=== PATIENT | female | born 1995 | race Caucasian/White ===

== ENCOUNTER → 2016-08-08 | Outpatient (REF) | payer MEDICAID ==
[~2016-08-08] MED LIST: ACET500C PO; BUSP10TA PO; ERYT5OPO TOP; ERYTHROMYCIN TOP; PROZ40CA PO; RISP0.5T16 PO; TRAZ50TA4 PO; TRAZO50TA PO; TYLE325T5 PO; [UNRECOGNIZED DRUG - CODE] TOP
[2016-08-08 12:05] LABS: MEAN CORPUSCULAR HEMOGLOBIN 30.4 pg (27.0-33.0); MEAN CORPUSCULAR HGB CONC 33.5 g/dl (32.0-36.5); MEAN CORPUSCULAR VOLUME 90.8 fl (80.0-96.0); RED CELL DISTRIBUTION WIDTH 12.6 % (11.5-14.5); WHITE BLOOD COUNT 5.7 K/mm3 (4.0-10.0)
[2016-08-08 12:07] LABS: ALBUMIN 3.9 GM/DL (3.2-5.2); ALBUMIN/GLOBULIN RATIO 1.56 (1.00-1.93); ALKALINE PHOSPHATASE 70 U/L (45-117); ALT/SGPT 26 U/L (12-78); ANION GAP 9 MEQ/L (8-16); AST/SGOT 8 U/L (15-37); BILIRUBIN,TOTAL 0.6 MG/DL (0.2-1.0); BLOOD UREA NITROGEN 8 MG/DL (7-18); CALCIUM LEVEL 8.4 MG/DL (8.5-10.1); CARBON DIOXIDE LEVEL 25 MEQ/L (21-32); CHLORIDE LEVEL 109 MEQ/L (98-107); CHOLESTEROL LEVEL 144 MG/DL (<200); GLOMERULAR FILTRATION RATE > 60.0 (>60); GLUCOSE, FASTING 88 MG/DL (70-105); POTASSIUM SERUM 3.9 MEQ/L (3.5-5.1); SODIUM LEVEL 143 MEQ/L (136-145); TOTAL PROTEIN 6.4 GM/DL (6.4-8.2); TRIGLYCERIDES LEVEL 47 MG/DL (<150)
== END ==
LOC: M SFHCLERA 09:28
PROVIDERS: ATTEND Family Medicine
DX: Z00.00 Encounter for general adult medical examination without abnormal findings (principal)

== ENCOUNTER → 2016-11-20 | Outpatient (REF) | payer MEDICAID ==
[~2016-11-20] MED LIST changes: +ERYT2PAD2 TOP; -RISP0.5T16 PO; +RISP0.5T21 PO; +TRAZ50TA11 PO; -TRAZ50TA4 PO; -[UNRECOGNIZED DRUG - CODE] TOP
== END ==
LOC: M SFHCWAGY 10:53
PROVIDERS: ATTEND Family Medicine
DX: Z11.3 Encounter for screening for infections with a predominantly sexual mode of transmission (principal); Z12.4 Encounter for screening for malignant neoplasm of cervix

== ENCOUNTER → 2017-08-02 | Outpatient (REF) | payer MEDICAID ==
[2017-08-02 13:44] LABS: ESTIMATED AVERAGE GLUCOSE 97 MG/DL (60-110)
== END ==
LOC: M SFHCLERA 09:04
DX: E66.9 Obesity, unspecified (principal)

== ENCOUNTER → 2017-11-19 | Outpatient (REF) | payer MEDICAID | LOC: M SFHCWAGY 13:40 | DX: Z12.4 Encounter for screening for malignant neoplasm of cervix (principal) ==

== ENCOUNTER → 2018-01-27 | Outpatient (REF) | payer MEDICAID ==
[2018-01-27 11:33] LABS: BASO % 0.4 % (0.0-1.0); EOS # 0.1 10^3/uL (0.0-0.50); EOS % 1.1 % (0.0-3.0); HEMATOCRIT 42.5 % (36.0-47.0); HEMOGLOBIN 13.9 g/dl (12.0-15.5); IMMATURE GRANULOCYTE % 0.4 % (0-3.0); LYMPH # 1.6 10^3/uL (1.5-6.5); LYMPH % 28.9 % (24.0-44.0); MEAN CORPUSCULAR HGB CONC 32.7 g/dl (32.0-36.5); MEAN CORPUSCULAR VOLUME 91.6 fl (80.0-96.0); MONO # 0.5 10^3/uL (0.0-0.8); MONO % 9.4 % (0.0-5.0); NEUTROPHILS # 3.3 10^3/uL (1.8-7.7); NEUTROPHILS % 59.8 % (36.0-66.0); PLATELET COUNT, AUTOMATED 306 10^3/uL (150-450); RED BLOOD COUNT 4.64 10^6/uL (4.00-5.40); RED CELL DISTRIBUTION WIDTH 12.8 % (11.5-14.5); WHITE BLOOD COUNT 5.5 10^3/uL (4.0-10.0)
[2018-01-27 13:35] LABS: ALBUMIN 3.5 GM/DL (3.2-5.2); ALBUMIN/GLOBULIN RATIO 1.09 (1.00-1.93); ALKALINE PHOSPHATASE 66 U/L (45-117); ALT/SGPT 16 U/L (12-78); ANION GAP 8 MEQ/L (8-16); AST/SGOT 7 U/L (7-37); BILIRUBIN,TOTAL 0.2 MG/DL (0.2-1.0); BLOOD UREA NITROGEN 7 MG/DL (7-18); CARBON DIOXIDE LEVEL 23 MEQ/L (21-32); CHLORIDE LEVEL 113 MEQ/L (98-107); CREATININE FOR GFR 0.65 MG/DL (0.55-1.30); GLOMERULAR FILTRATION RATE > 60.0 (>60); GLUCOSE, FASTING 80 MG/DL (70-100); POTASSIUM SERUM 4.6 MEQ/L (3.5-5.1); SODIUM LEVEL 144 MEQ/L (136-145); TOTAL PROTEIN 6.7 GM/DL (6.4-8.2)
[2018-01-27 14:29] LABS: FREE T4 0.85 NG/DL (0.76-1.46)
== END ==
LOC: M SFHCLERA 08:53
DX: E66.09 Other obesity due to excess calories (principal)

== ENCOUNTER → 2018-04-24 | Outpatient (REF) | payer MEDICAID ==
[~2018-04-24] MED LIST changes: +TRAZ-160 PO; -TRAZ50TA11 PO
== END ==
LOC: M SFHCLERA 12:11
PROVIDERS: ATTEND Physician Assistant
DX: J02.9 Acute pharyngitis, unspecified (principal)

== ENCOUNTER 2018-09-07 14:49 | Emergency (ER) | payer MEDICAID ==
[~2018-09-07 14:49] MED LIST changes: +ERYT1OIN26 TOP; -ERYT5OPO TOP; +TRAZ1TAB6 PO; -TRAZO50TA PO
[2018-09-07] MEDS ORDERED: ACETAMINOPHEN 325 MG TAB PO ONE (15:15)
[2018-09-07] MEDS ORDERED: TOPA50TA8 PO (15:36)
[2018-09-07] MEDS ORDERED: CLAR10CA3 PO (15:36)
[2018-09-07] MEDS ORDERED: CETI10CA2 PO (15:36)
[2018-09-07] MEDS ORDERED: ALBU8.5H IH (15:36)
--- NOTE | 2018-09-07 15:53 | REP ---
LEFT KNEE, FIVE VIEWS: HISTORY: Pain. There is no acute fracture or dislocation. The joint spaces are normal in appearance. IMPRESSION: There is no acute fracture or dislocation. Electronically Signed by Americo Kline MD 09/07/2018 04:11 P
[2018-09-07 16:36] VITALS: BP 122/64
== END 2018-09-07 17:13 | disposition home or self-care (01) ==
LOC: EDBD 14:49 → M ED 14:49
DX: S89.92XA Unspecified injury of left lower leg, initial encounter (principal); W19.XXXA Unspecified fall, initial encounter; Y92.099 Unspecified place in other non-institutional residence as the place of occurrence of the external cause; Y93.9 Activity, unspecified; Y99.9 Unspecified external cause status; J30.2 Other seasonal allergic rhinitis; F41.9 Anxiety disorder, unspecified; F32.9 Major depressive disorder, single episode, unspecified; Z79.899 Other long term (current) drug therapy

== ENCOUNTER 2018-12-15 18:18 | Emergency (ER) | payer MEDICAID ==
[~2018-12-15] VITALS: Ht 154.9 cm; Wt 93.1 kg
[~2018-12-15 18:18] MED LIST changes: +ALBU8.5H IH; +CETI10CA2 PO; +CLAR10CA3 PO; +TOPA50TA8 PO; -TRAZ-160 PO; +TRAZ-252 PO
[2018-12-15 18:20] VITALS: BP 159/84
[2018-12-15] MEDS ORDERED: TOPA100T12 (18:28)
[2018-12-15] MEDS ORDERED: SING5CHW23 PO (18:28)
[2018-12-15] MEDS ORDERED: TRI-TAB11 (18:28)
[2018-12-15 20:24] LABS: HEMATOCRIT 42.1 % (36.0-47.0); MEAN CORPUSCULAR HEMOGLOBIN 30.2 pg (27.0-33.0); MEAN CORPUSCULAR HGB CONC 33.3 g/dl (32.0-36.5); MEAN CORPUSCULAR VOLUME 90.7 fl (80.0-96.0); PLATELET COUNT, AUTOMATED 327 10^3/uL (150-450); RED BLOOD COUNT 4.64 10^6/uL (4.00-5.40); WHITE BLOOD COUNT 8.8 10^3/uL (4.0-10.0)
[2018-12-15 20:47] LABS: AMPHETAMINES LEVEL URINE NEGATIVE (NEGATIVE); BARBITURATES URINE NEGATIVE (NEGATIVE); BENZODIAZEPINES URINE NEGATIVE (NEGATIVE); CANNABINOIDS URINE NEGATIVE (NEGATIVE); COCAINE METABOLITE URINE NEGATIVE (NEGATIVE); METHADONE URINE NEGATIVE (NEGATIVE); OPIATES URINE NEGATIVE (NEGATIVE); PHENCYCLIDINE URINE NEGATIVE (NEGATIVE)
[2018-12-15 20:53] LABS: HCG, SERUM QUALITATIVE NEGATIVE (NEGATIVE)
[2018-12-15 20:58] LABS: ACETAMINOPHEN LEVEL < 2.0 UG/ML (10.0-30.0); ALBUMIN 3.4 GM/DL (3.2-5.2); ALT/SGPT 14 U/L (12-78); BILIRUBIN,DIRECT < 0.1 MG/DL (0.0-0.2); BILIRUBIN,TOTAL 0.2 MG/DL (0.2-1.0); BLOOD UREA NITROGEN 8 MG/DL (7-18); CARBON DIOXIDE LEVEL 23 MEQ/L (21-32); CHLORIDE LEVEL 110 MEQ/L (98-107); CK-MB VALUE MASS < 1.0 NG/ML (<3.6); CPK CREATINE PHOSPHOKINASE 57 U/L (26-192); CREATININE FOR GFR 0.82 MG/DL (0.55-1.30); ETHYL ALCOHOL (ETHANOL) < 0.003 % (0.000-0.010); GLOMERULAR FILTRATION RATE > 60.0 (>60); GLUCOSE, FASTING 88 MG/DL (70-100); MB/CK RELATIVE INDEX 1.75 (< OR =4); POTASSIUM SERUM 3.5 MEQ/L (3.5-5.1); SALICYLATE LEVEL < 1.7 MG/DL (5.0-30.0); SODIUM LEVEL 141 MEQ/L (136-145); TOTAL PROTEIN 6.7 GM/DL (6.4-8.2); TROPONIN I < 0.02 NG/ML (< 0.10)
--- NOTE | 2018-12-15 21:12 | REP ---
CHEST, TWO VIEWS: There is no evidence of acute infiltrate. No pleural effusion is seen. The heart is normal in size. The mediastinal silhouette is unremarkable. The visualized osseous structures are intact. IMPRESSION: No acute pulmonary disease. Electronically Signed by Maurizio Dickson MD 12/16/2018 10:04 A
--- NOTE | 2018-12-17 07:56 | ECGEPIP ---
[facility] - ED Test Date: 2018-12-15 Pat Name: AKUA KELLER Department: Room: - Gender: Female Manager Apple: : 1995 Requested By: ED Thomas Order Number: [id number] Reading MD: Kandy Gonzalez Measurements Intervals [place] Rate: 65 P: 51 MO: 138 QRS: 28 QRSD: 125 T: 43 QT: 476 QTc: 498 Interpretive Statements SINUS RHYTHM WITH SINUS ARRHYTHMIA POSSIBLE RIGHT VENTRICULAR CONDUCTION DELAY ST DEVIATION AND MODERATE T-WAVE ABNORMALITY, CONSIDER ANTERIOR ISCHEMIA No prior Electronically Signed on 12-17-2018 7:56:35 EDT by Kandy Gonzalez
== END 2018-12-15 22:51 | disposition home or self-care (01) ==
LOC: M ED 18:18
DX: R07.9 Chest pain, unspecified (principal); F32.9 Major depressive disorder, single episode, unspecified; F41.9 Anxiety disorder, unspecified; L70.9 Acne, unspecified; E28.2 Polycystic ovarian syndrome; F70 Mild intellectual disabilities; J45.909 Unspecified asthma, uncomplicated; Z79.899 Other long term (current) drug therapy; Z79.3 Long term (current) use of hormonal contraceptives
CPT/HCPCS: 36415; 71046; 80048; 80076; 80307; 82550; 82553; 84443; 84703; 85027; 93005; 99284; G0480

== ENCOUNTER → 2018-12-30 | Outpatient (REF) | payer MEDICAID ==
[~2018-12-30] MED LIST changes: +SING5CHW23 PO; +TOPA100T12; +TRI-TAB11
[2018-12-30 21:39] LABS: CHLAMYDIA DNA AMPLIFICATION NEGATIVE (NEGATIVE); GC DNA AMPLIFICATION NEGATIVE (NEGATIVE)
== END ==
LOC: M SFHCLERA 17:25
PROVIDERS: ATTEND Nurse Practitioner Family
DX: R30.9 Painful micturition, unspecified (principal)

== ENCOUNTER → 2019-03-28 | Outpatient (REF) | payer MEDICAID | LOC: M SFHCLERA 11:28 | PROVIDERS: ATTEND Nurse Practitioner Family | DX: J02.9 Acute pharyngitis, unspecified (principal) ==

== ENCOUNTER → 2019-04-01 | Outpatient (CLI) | payer MEDICAID ==
--- NOTE | 2019-04-02 09:07 | REP ---
REASON: Pyrexia and cough. COMPARISON: 12/15/2018. FINDINGS: The superior mediastinal structures are midline. The cardiac silhouette is unremarkable in size, shape, and position. The diaphragmatic surfaces of the lungs are regular, and the costophrenic angles are clear. The pulmonary su are clear. The imaged osseous structures are intact. IMPRESSION: There is no acute cardiopulmonary disease. Electronically Signed by John Samuels DO 04/02/2019 09:25 A
== END ==
LOC: M LRY 17:07
PROVIDERS: ATTEND Physician Assistant
DX: R50.9 Fever, unspecified (principal)

== ENCOUNTER → 2019-05-12 | Outpatient (REF) | payer MEDICAID | LOC: M SFHCLERA 19:00 | PROVIDERS: ATTEND Physician Assistant | DX: R50.9 Fever, unspecified (principal) ==

== ENCOUNTER 2019-06-13 10:14 | Emergency (ER) | payer MEDICAID ==
[~2019-06-13] VITALS: Ht 149.9 cm; Wt 89.5 kg
[~2019-06-13 10:14] MED LIST changes: -ALBU8.5H IH; +ALBU8.5H INH; -TOPA100T12; +TOPA100T12 PO
[2019-06-13 13:30] LABS: HEMOGLOBIN 14.6 g/dl (12.0-15.5); MEAN CORPUSCULAR HGB CONC 31.7 g/dl (32.0-36.5); MEAN CORPUSCULAR VOLUME 91.5 fl (80.0-96.0); PLATELET COUNT, AUTOMATED 361 10^3/uL (150-450); RED BLOOD COUNT 5.03 10^6/uL (4.00-5.40); WHITE BLOOD COUNT 8.4 10^3/uL (4.0-10.0)
[2019-06-13 13:41] LABS: AMPHETAMINES LEVEL URINE NEGATIVE (NEGATIVE); BARBITURATES URINE NEGATIVE (NEGATIVE); BENZODIAZEPINES URINE NEGATIVE (NEGATIVE); CANNABINOIDS URINE NEGATIVE (NEGATIVE); COCAINE METABOLITE URINE NEGATIVE (NEGATIVE); METHADONE URINE NEGATIVE (NEGATIVE); OPIATES URINE NEGATIVE (NEGATIVE); PHENCYCLIDINE URINE NEGATIVE (NEGATIVE)
[2019-06-13 13:51] LABS: BLOOD UREA NITROGEN 7 MG/DL (7-18); CARBON DIOXIDE LEVEL 24 MEQ/L (21-32); CHLORIDE LEVEL 110 MEQ/L (98-107); CREATININE FOR GFR 0.81 MG/DL (0.55-1.30); GLOMERULAR FILTRATION RATE > 60.0 (>60); GLUCOSE, FASTING 82 MG/DL (70-100); POTASSIUM SERUM 3.6 MEQ/L (3.5-5.1); SODIUM LEVEL 141 MEQ/L (136-145)
[2019-06-13 13:52] LABS: ACETAMINOPHEN LEVEL < 2.0 UG/ML (10.0-30.0); ALBUMIN 3.8 GM/DL (3.2-5.2); ALT/SGPT 16 U/L (12-78); BILIRUBIN,DIRECT 0.1 MG/DL (0.0-0.2); BILIRUBIN,TOTAL 0.2 MG/DL (0.2-1.0); ETHYL ALCOHOL (ETHANOL) < 0.003 % (0.000-0.010); HCG, SERUM QUALITATIVE NEGATIVE (NEGATIVE); SALICYLATE LEVEL < 1.7 MG/DL (5.0-30.0)
[2019-06-13] MEDS ORDERED: FLON1SPR (14:39)
[2019-06-13] MEDS ORDERED: ERYTHROMYCIN TOP (14:39)
[2019-06-13] MEDS ORDERED: TRI-TAB PO (14:39)
[2019-06-13] MEDS ORDERED: MONT10TA2 PO (14:39)
[2019-06-13] MEDS ORDERED: VITA100054 PO (14:39)
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
[2019-06-13 16:14] VITALS: BP 140/91
== END 2019-06-13 16:16 | disposition home or self-care (01) ==
LOC: M ED 10:14
DX: F33.9 Major depressive disorder, recurrent, unspecified (principal); J45.909 Unspecified asthma, uncomplicated; E28.2 Polycystic ovarian syndrome; F41.9 Anxiety disorder, unspecified; F43.10 Post-traumatic stress disorder, unspecified; F60.3 Borderline personality disorder; F79 Unspecified intellectual disabilities; G40.A19 Absence epileptic syndrome, intractable, without status epilepticus; Z79.899 Other long term (current) drug therapy; Z79.3 Long term (current) use of hormonal contraceptives
CPT/HCPCS: 36415; 80048; 80076; 80307; 84443; 84703; 85027; 99284; G0480

== ENCOUNTER → 2020-09-10 | Outpatient (CLI) | payer MEDICAID ==
[~2020-09-10] MED LIST changes: -ERYT1OIN26 TOP; +ERYT5OIN25 TOP; +FLON1SPR; +MONT10TA10 PO; +TRI-TAB PO; +VITA100054 PO
== END ==
LOC: M WUC 10:48
PROVIDERS: ATTEND Physician Assistant Medical
DX: G43.909 Migraine, unspecified, not intractable, without status migrainosus (principal)

== ENCOUNTER → 2020-10-09 | Outpatient (CLI) | payer MEDICAID ==
[2020-10-14 16:22] LABS: TOPIRAMATE LEVEL 4.6 ug/mL (2.0-25.0)
== END ==
LOC: M WUC 13:56
PROVIDERS: ATTEND Physician Assistant Medical
DX: Z51.81 Encounter for therapeutic drug level monitoring (principal); G43.909 Migraine, unspecified, not intractable, without status migrainosus

== ENCOUNTER → 2020-10-21 | Outpatient (REF) | payer MEDICAID ==
[2020-10-21 20:42] LABS: AMORPHOUS SEDIMENT SMALL (NEGATIVE); APPEARANCE, URINE TURBID (CLEAR); BACTERIA, URINE AUTO NEGATIVE (NEGATIVE); BILIRUBIN, URINE AUTO NEGATIVE (NEGATIVE); BLOOD, URINE BLOOD NEGATIVE (NEGATIVE); CALCIUM OXALATE CRYSTALS SMALL; COLOR, URINE YELLOW (YELLOW); GLUCOSE, URINE (UA) AUTO NEGATIVE (NEGATIVE); KETONE, URINE AUTO NEGATIVE (NEGATIVE); LEUKOCYTE ESTERASE, URINE AUTO NEGATIVE (NEGATIVE); MUCUS, URINE SMALL (NEGATIVE); NITRITE, URINE AUTO NEGATIVE (NEGATIVE); PROTEIN, URINE AUTO NEGATIVE (NEGATIVE); RBC, URINE AUTO 1 /HPF (0-3); SPECIFIC GRAVITY URINE AUTO 1.011 (1.002-1.035); SQUAMOUS EPITHELIAL CELL UR AU 0 /HPF (0-6); UROBILINOGEN, URINE AUTO 0.2 mg/dL (0.0-2.0); WBC, URINE AUTO 0 /HPF (0-3)
== END ==
LOC: M LAB 19:55
PROVIDERS: ATTEND Family Medicine
DX: R30.0 Dysuria (principal)

== ENCOUNTER 2021-10-01 10:52 | Emergency (ER) | payer MEDICAID ==
[~2021-10-01] VITALS: Ht 124.5 cm; Wt 92.6 kg
[~2021-10-01 10:52] MED LIST changes: -MONT10TA10 PO; +MONT10TA97 PO
[2021-10-01 10:53] VITALS: BP 125/79
== END 2021-10-01 13:10 | disposition home or self-care (01) ==
LOC: M ED 10:52
DX: S63.601A Unspecified sprain of right thumb, initial encounter (principal); X50.9XXA Other and unspecified overexertion or strenuous movements or postures, initial encounter; Y92.018 Other place in single-family (private) house as the place of occurrence of the external cause; J45.909 Unspecified asthma, uncomplicated; F33.9 Major depressive disorder, recurrent, unspecified; R56.9 Unspecified convulsions; F71 Moderate intellectual disabilities; Z79.899 Other long term (current) drug therapy; Z79.3 Long term (current) use of hormonal contraceptives

== ENCOUNTER → 2021-10-14 | Outpatient (CLI) | payer MEDICAID | LOC: M RAD 11:58 | PROVIDERS: ATTEND Student in an Organized Health Care Education/Training Program | DX: S86.912A Strain of unspecified muscle(s) and tendon(s) at lower leg level, left leg, initial encounter (principal); X58.XXXA Exposure to other specified factors, initial encounter; Y92.9 Unspecified place or not applicable; Y99.9 Unspecified external cause status ==

== ENCOUNTER → 2021-12-26 | Outpatient (CLI) | payer MEDICAID | LOC: M SOG 08:02 | PROVIDERS: ATTEND Orthopaedic Surgery Adult Reconstructive Orthopaedic Surgery | DX: M25.562 Pain in left knee (principal) ==

== ENCOUNTER → 2022-02-03 | Outpatient (REF) | payer MEDICAID | LOC: M SFHCLERA 11:19 | PROVIDERS: ATTEND Family Medicine | DX: R39.15 Urgency of urination (principal); R35.0 Frequency of micturition ==

== ENCOUNTER → 2022-02-13 | Outpatient (REF) | payer MEDICAID | LOC: M SFHCPLAZ 16:56 | PROVIDERS: ATTEND Physician Assistant | DX: R30.0 Dysuria (principal) ==

== ENCOUNTER → 2022-04-29 | Outpatient (REF) | payer MEDICAID ==
[2022-04-29 19:20] LABS: APPEARANCE, URINE MANUAL CLEAR (CLEAR); BILIRUBIN, URINE MANUAL NEGATIVE (NEGATIVE); BLOOD URINE MANUAL NEGATIVE (NEGATIVE); COLOR, URINE MANUAL LT YELLOW (YELLOW); GLUCOSE, URINE (UA) MANUAL NEGATIVE (NEGATIVE); KETONE, URINE MANUAL NEGATIVE (NEGATIVE); NITRITE, URINE MANUAL NEGATIVE (NEGATIVE); PROTEIN, URINE MANUAL NEGATIVE (NEGATIVE); UROBILINOGEN, URINE MANUAL NORMAL (NORMAL)
[2022-04-29 19:22] LABS: LEUKOCYTE ESTERASE, URINE MAN TRACE (NEGATIVE)
[2022-04-29 22:05] LABS: BACTERIA, URINE MOD AMOUNT; SQUAMOUS EPITHELIAL CELL URINE SMALL AMOUNT /hpf (SMALL AMT)
[2022-04-29 22:06] LABS: HYALINE CAST, URINE NONE SEEN /lpf (0-1)
== END ==
LOC: M SFHCLERA 16:34
PROVIDERS: ATTEND Student in an Organized Health Care Education/Training Program
DX: R30.0 Dysuria (principal)

== ENCOUNTER → 2022-08-26 | Outpatient (REF) | payer MEDICAID | LOC: M PLALAB 15:13 | PROVIDERS: ATTEND Advanced Practice Midwife | DX: Z12.4 Encounter for screening for malignant neoplasm of cervix (principal) ==

== ENCOUNTER → 2022-09-25 | Outpatient (CLI) | payer MEDICAID ==
[2022-09-25 17:10] LABS: BASO % 0.3 % (0.0-1.0); EOS # 0.1 10^3/uL (0.0-0.5); EOS % 1.4 % (0.0-3.0); HEMATOCRIT 41.5 % (36.0-47.0); HEMOGLOBIN 13.4 g/dl (12.0-15.5); LYMPH # 2.8 10^3/uL (1.5-5.0); LYMPH % 38.4 % (24.0-44.0); MEAN CORPUSCULAR HEMOGLOBIN 29.5 pg (27.0-33.0); MEAN CORPUSCULAR HGB CONC 32.3 g/dl (32.0-36.5); MEAN CORPUSCULAR VOLUME 91.2 fl (80.0-96.0); MONO # 0.5 10^3/uL (0.0-0.8); MONO % 7.2 % (2.0-8.0); NEUTROPHILS # 3.8 10^3/uL (1.5-8.5); NEUTROPHILS % 52.3 % (36.0-66.0); PLATELET COUNT, AUTOMATED 338 10^3/uL (150-450); RED BLOOD COUNT 4.55 10^6/uL (4.00-5.40); WHITE BLOOD COUNT 7.2 10^3/uL (4.0-10.0)
[2022-09-25 17:13] LABS: ALBUMIN 3.1 G/DL (3.2-5.2); ALKALINE PHOSPHATASE 62 U/L (46-116); ALT/SGPT 15 U/L (7.0-40); AST/SGOT 9 U/L (<34); BILIRUBIN,TOTAL < 0.2 MG/DL (0.3-1.2); BLOOD UREA NITROGEN 7 MG/DL (9-23); CALCIUM LEVEL 8.6 MG/DL (8.5-10.1); CARBON DIOXIDE LEVEL 26 MMOL/L (20-31); CHLORIDE LEVEL 109 MMOL/L (98-107); CHOLESTEROL LEVEL 159 MG/DL (<200); CHOLESTEROL RISK RATIO 2.47 (<5); CREATININE FOR GFR 0.74 MG/DL (0.55-1.30); GLOMERULAR FILTRATION RATE > 60.0 (>60); GLUCOSE, FASTING 106 MG/DL (60-100); HDL CHOLESTEROL 64.2 MG/DL (>40); LDL CHOLESTEROL 71.6 MG/DL (<100); NON-HDL-C 94.8 MG/DL; POTASSIUM SERUM 4.2 MMOL/L (3.5-5.1); SODIUM LEVEL 140 MMOL/L (136-145); TRIGLYCERIDES LEVEL 116 MG/DL (<150)
[2022-09-25 17:15] LABS: FREE T4 1.02 NG/DL (0.89-1.76); THYROID STIMULATING HORMONE 2.117 uIU/ML (0.55-4.78)
== END ==
LOC: M WUC 12:50
PROVIDERS: ATTEND Student in an Organized Health Care Education/Training Program
DX: E66.01 Morbid (severe) obesity due to excess calories (principal); M25.762 Osteophyte, left knee

== ENCOUNTER → 2023-01-20 | Outpatient (REF) | payer MEDICAID | LOC: M SFHCWAGY 12:49 | PROVIDERS: ATTEND Nurse Practitioner Family | DX: N73.9 Female pelvic inflammatory disease, unspecified (principal) ==

== ENCOUNTER 2023-03-03 09:27 | Outpatient (RCR) | payer MEDICAID | END 2023-03-09 | LOC: M PT 09:27 | PROVIDERS: ATTEND Orthopaedic Surgery | DX: M25.562 Pain in left knee (principal) ==

== ENCOUNTER → 2023-03-09 | Outpatient (REF) | payer MEDICAID | LOC: M SFHCDERM 08:27 | PROVIDERS: ATTEND Physician Assistant | DX: D23.72 Other benign neoplasm of skin of left lower limb, including hip (principal) ==

== ENCOUNTER → 2023-06-30 | Outpatient (CLI) | payer MEDICAID ==
[~2023-06-30] MED LIST changes: +SYST0.4D2 OP
[2023-06-30 10:15] VITALS: TEMP 97.5
[2023-06-30 10:36] LABS: HEMOGLOBIN 14.1 g/dl (12.0-15.5); MEAN CORPUSCULAR VOLUME 90.5 fl (80.0-96.0); PLATELET COUNT, AUTOMATED 341 10^3/uL (150-450); RED BLOOD COUNT 4.86 10^6/uL (4.00-5.40); WHITE BLOOD COUNT 8.9 10^3/uL (4.0-10.0)
[2023-06-30 10:53] LABS: INR 1.03; PROTHROMBIN TIME 13.2 SECONDS (12.5-14.5)
[2023-06-30 12:36] LABS: APPEARANCE, CSF CLEAR (CLEAR); COLOR, CSF COLORLESS (COLORLESS); CSF TUBE# CELL CNT TUBE 1
[2023-06-30 13:14] LABS: CSF TUBE# TP TUBE 1; TOTAL PROTEIN,CSF 31.9 MG/DL (15-45)
[2023-06-30 13:15] VITALS: BP 149/74; O2SAT 99
[2023-06-30 13:17] LABS: CSF TUBE# GLU TUBE 1
== END ==
LOC: M IRPRO 09:54
PROVIDERS: ATTEND Psychiatry & Neurology Neurology
DX: G93.2 Benign intracranial hypertension (principal)

== ENCOUNTER → 2023-07-13 | Outpatient (REF) | payer MEDICAID ==
[~2023-07-13] MED LIST changes: +MONT5TAB7 PO; -SING5CHW23 PO
== END ==
LOC: M SFHCWAGY 13:45
PROVIDERS: ATTEND Nurse Practitioner Family
DX: R30.0 Dysuria (principal)

== ENCOUNTER → 2023-07-21 | Outpatient (CLI) | payer MEDICAID | LOC: M PLAIMG 08:10 | PROVIDERS: ATTEND Physician Assistant | DX: M71.22 Synovial cyst of popliteal space [Baker], left knee (principal) ==

== ENCOUNTER → 2023-08-04 | Outpatient (REF) | payer MEDICAID ==
[2023-08-04 11:25] LABS: BASO % 0.5 % (0.0-1.0); EOS # 0.2 10^3/uL (0.0-0.5); EOS % 2.5 % (0.0-3.0); HEMATOCRIT 43.1 % (36.0-47.0); LYMPH # 1.9 10^3/uL (1.5-5.0); MEAN CORPUSCULAR HEMOGLOBIN 28.6 pg (27.0-33.0); MEAN CORPUSCULAR HGB CONC 32.5 g/dl (32.0-36.5); MEAN CORPUSCULAR VOLUME 88.1 fl (80.0-96.0); MONO # 0.5 10^3/uL (0.0-0.8); MONO % 8.2 % (2.0-8.0); NEUTROPHILS # 3.7 10^3/uL (1.5-8.5); NEUTROPHILS % 58.3 % (36.0-66.0); PLATELET COUNT, AUTOMATED 351 10^3/uL (150-450); RED BLOOD COUNT 4.89 10^6/uL (4.00-5.40); WHITE BLOOD COUNT 6.4 10^3/uL (4.0-10.0)
[2023-08-04 11:52] LABS: ALBUMIN 3.7 G/DL (3.2-5.2); ALKALINE PHOSPHATASE 90 U/L (46-116); ALT/SGPT 20 U/L (7.0-40); AST/SGOT 10 U/L (<34); BILIRUBIN,TOTAL 0.4 MG/DL (0.3-1.2); BLOOD UREA NITROGEN 9 MG/DL (9-23); CALCIUM LEVEL 8.6 MG/DL (8.5-10.1); CARBON DIOXIDE LEVEL 19 MMOL/L (20-31); CHLORIDE LEVEL 114 MMOL/L (98-107); CREATININE FOR GFR 0.73 MG/DL (0.55-1.30); GLOMERULAR FILTRATION RATE > 60.0 (>60); GLUCOSE, FASTING 80 MG/DL (60-100); POTASSIUM SERUM 4.1 MMOL/L (3.5-5.1); SODIUM LEVEL 143 MMOL/L (136-145); TOTAL PROTEIN 6.3 G/DL (5.7-8.2)
== END ==
LOC: M LABWUC 10:20
PROVIDERS: ATTEND Psychiatry & Neurology Neurology
DX: G43.909 Migraine, unspecified, not intractable, without status migrainosus (principal)

== ENCOUNTER → 2023-10-06 | Outpatient (REF) | payer MEDICAID ==
[2023-10-06 12:54] LABS: BASO % 0.4 % (0.0-1.0); EOS # 0.1 10^3/uL (0.0-0.5); EOS % 0.9 % (0.0-3.0); HEMATOCRIT 43.7 % (36.0-47.0); HEMOGLOBIN 14.2 g/dl (12.0-15.5); LYMPH # 1.7 10^3/uL (1.5-5.0); LYMPH % 21.7 % (24.0-44.0); MEAN CORPUSCULAR HEMOGLOBIN 29.3 pg (27.0-33.0); MEAN CORPUSCULAR HGB CONC 32.5 g/dl (32.0-36.5); MEAN CORPUSCULAR VOLUME 90.3 fl (80.0-96.0); MONO # 0.6 10^3/uL (0.0-0.8); MONO % 8.1 % (2.0-8.0); NEUTROPHILS # 5.3 10^3/uL (1.5-8.5); NEUTROPHILS % 68.4 % (36.0-66.0); PLATELET COUNT, AUTOMATED 327 10^3/uL (150-450); RED BLOOD COUNT 4.84 10^6/uL (4.00-5.40); WHITE BLOOD COUNT 7.8 10^3/uL (4.0-10.0)
[2023-10-06 13:23] LABS: ALBUMIN 3.7 G/DL (3.2-5.2); ALKALINE PHOSPHATASE 107 U/L (46-116); ALT/SGPT 24 U/L (7.0-40); AST/SGOT < 8 U/L (<34); BILIRUBIN,TOTAL 0.5 MG/DL (0.3-1.2); BLOOD UREA NITROGEN 8 MG/DL (9-23); CALCIUM LEVEL 8.9 MG/DL (8.5-10.1); CARBON DIOXIDE LEVEL 22 MMOL/L (20-31); CHLORIDE LEVEL 112 MMOL/L (98-107); CHOLESTEROL LEVEL 173 MG/DL (<200); CHOLESTEROL RISK RATIO 3.73 (<5); CREATININE FOR GFR 0.81 MG/DL (0.55-1.30); GLOMERULAR FILTRATION RATE > 60.0 (>60); GLUCOSE, FASTING 73 MG/DL (60-100); HDL CHOLESTEROL 46.3 MG/DL (>40); LDL CHOLESTEROL 110.7 MG/DL (<100); NON-HDL-C 126.7 MG/DL; POTASSIUM SERUM 3.7 MMOL/L (3.5-5.1); SODIUM LEVEL 140 MMOL/L (136-145); TOTAL PROTEIN 6.5 G/DL (5.7-8.2); TRIGLYCERIDES LEVEL 80 MG/DL (<150)
[2023-10-06 13:25] LABS: THYROID STIMULATING HORMONE 1.896 uIU/ML (0.55-4.78); TOTAL 25(OH) VITAMIN D 35.6 NG/ML (20.0-100.0)
== END ==
LOC: M LABWUC 10:31
PROVIDERS: ATTEND Physician Assistant
DX: Z00.00 Encounter for general adult medical examination without abnormal findings (principal)

== ENCOUNTER → 2024-01-25 | Outpatient (REF) | payer MEDICAID | LOC: M SFHCWAGY 12:30 | PROVIDERS: ATTEND Nurse Practitioner Family | DX: N73.9 Female pelvic inflammatory disease, unspecified (principal) ==

== ENCOUNTER → 2024-01-31 | Outpatient (CLI) | payer MEDICAID | LOC: M SOG 07:23 | PROVIDERS: ATTEND Orthopaedic Surgery | DX: M25.562 Pain in left knee (principal) ==

== ENCOUNTER 2024-04-18 15:42 | Emergency (ER) | payer MEDICAID ==
[~2024-04-18] VITALS: Ht 154.9 cm; Wt 104.1 kg
[2024-04-18 15:50] VITALS: TEMP 98.7
[2024-04-18] MEDS ORDERED: EPIP0.15 IJ (15:53)
[2024-04-18] MEDS: diphenhydrAMINE 50MG CAP PO ONE (17:29)
[2024-04-18] MEDS: predniSONE 20 MG TAB PO ONE (17:30)
[2024-04-18] MEDS: FAMOTIDINE 20 MG TAB PO ONE (17:30)
[2024-04-18 18:30] VITALS: BP 141/72; O2SAT 98
== END 2024-04-18 18:45 | disposition home or self-care (01) ==
LOC: EDBD 15:42 → M ED 15:42
DX: T78.40XA Allergy, unspecified, initial encounter (principal); E28.2 Polycystic ovarian syndrome; J45.909 Unspecified asthma, uncomplicated; F31.9 Bipolar disorder, unspecified; F32.A Depression, unspecified; Z91.010 Allergy to peanuts; Z91.09 Other allergy status, other than to drugs and biological substances; Z79.51 Long term (current) use of inhaled steroids; Z79.899 Other long term (current) drug therapy
CPT/HCPCS: 99284; J7512

== ENCOUNTER 2024-04-21 07:27 | Emergency (ER) | payer MEDICAID ==
[~2024-04-21 07:27] MED LIST changes: +EPIP0.15 IJ
[2024-04-21 07:45] VITALS: BP 126/78; TEMP 96.9; O2SAT 97
[2024-04-21] MEDS: ONDANSETRON 4MG ORAL DISINTEGRATING TAB PO ONE (07:58)
[2024-04-21] MEDS: IBUPROFEN 600MG TAB PO ONE (07:59)
== END 2024-04-21 10:10 | disposition home or self-care (01) ==
LOC: EDBD 07:27 → M ED 07:27
DX: S00.83XA Contusion of other part of head, initial encounter (principal); Y92.9 Unspecified place or not applicable; Y93.9 Activity, unspecified; Y99.0 Civilian activity done for income or pay; W50.0XXA Accidental hit or strike by another person, initial encounter; Z91.010 Allergy to peanuts; Z91.09 Other allergy status, other than to drugs and biological substances; Z79.51 Long term (current) use of inhaled steroids; Z79.899 Other long term (current) drug therapy

== ENCOUNTER → 2024-09-27 | Outpatient (REF) | payer MEDICAID ==
[2024-09-29 14:22] LABS: HPV APTIMA Not Detected (Not Detected)
== END ==
LOC: M SFHCWAGY 12:47
PROVIDERS: ATTEND Nurse Practitioner Family
DX: Z12.4 Encounter for screening for malignant neoplasm of cervix (principal)

== ENCOUNTER 2025-01-11 19:13 | Inpatient (IN) | payer MEDICAID ==
[~2025-01-11] VITALS: Ht 160 cm; Wt 102.0 kg
[~2025-01-11 19:13] MED LIST changes: +EPIP0.3I2 IM
[2025-01-11 20:03] LABS: PLATELET COUNT, AUTOMATED 382 10^3/uL (150-450)
[2025-01-11 20:21] LABS: AMPHETAMINES LEVEL URINE NEGATIVE (NEGATIVE); BARBITURATES URINE NEGATIVE (NEGATIVE); BENZODIAZEPINES URINE NEGATIVE (NEGATIVE); COCAINE METABOLITE URINE NEGATIVE (NEGATIVE)
[2025-01-11 20:22] LABS: CANNABINOIDS URINE NEGATIVE (NEGATIVE); METHADONE URINE NEGATIVE (NEGATIVE); OPIATES URINE NEGATIVE (NEGATIVE); PHENCYCLIDINE URINE NEGATIVE (NEGATIVE)
[2025-01-11 20:24] LABS: ETHYL ALCOHOL (ETHANOL) 0.004 % (0.000-0.010)
[2025-01-11 20:25] LABS: SALICYLATE LEVEL < 3.0 MG/DL (<30)
[2025-01-11 20:26] LABS: ALT/SGPT 28 U/L (7.0-40); AST/SGOT 17 U/L (<34); CALCIUM LEVEL 8.6 MG/DL (8.5-10.1); CARBON DIOXIDE LEVEL 21 MMOL/L (20-31); CHLORIDE LEVEL 107 MMOL/L (98-107); CREATININE FOR GFR 0.79 MG/DL (0.55-1.30); GLOMERULAR FILTRATION RATE > 90.0 (>60); POTASSIUM SERUM 3.8 MMOL/L (3.5-5.1); SODIUM LEVEL 142 MMOL/L (136-145)
[2025-01-11 21:25] LABS: HCG, SERUM QUALITATIVE NEGATIVE (NEGATIVE)
[2025-01-11] MEDS: LORazepam 0.5 MG TAB PO ONE (22:09)
[2025-01-11] MEDS ORDERED: ACETAMINOPHEN 325 MG TAB PO PRN (22:20)
[2025-01-11] MEDS ORDERED: MAALOX 30 ML SUSP *UDC PO PRN (22:20)
[2025-01-11] MEDS ORDERED: MOM 30 ML SUSPENSION UDC PO PRN (22:20)
[2025-01-12 06:29] VITALS: BP 138/85; TEMP 98.2; O2SAT 100
[2025-01-12] MEDS ORDERED: ALBUTEROL 90 MCG/ACT 8 GM HFA INHALER INH PRN (11:50)
[2025-01-12] MEDS: MUPIROCIN 2% OINT 22 GM TUBE TOP SCH (12:18)
[2025-01-12] MEDS: MONTELUKAST 10 MG TAB PO ONE (12:18)
[2025-01-12] MEDS: ALBUTEROL 90 MCG/ACT 8 GM HFA INHALER INH ONE (12:18)
[2025-01-12] MEDS: MUPIROCIN 2% OINT 22 GM TUBE TOP ONE (12:23)
[2025-01-12] MEDS: ACETAMINOPHEN 500 MG TAB PO ONE (12:31)
[2025-01-12] MEDS: IBUPROFEN 400 MG TAB PO ONE (12:31)
[2025-01-12] MEDS ORDERED: ACET250T18 PO (15:14)
[2025-01-12] MEDS ORDERED: METF-838 PO (15:17)
[2025-01-12] MEDS ORDERED: NORA0.35 PO (15:18)
[2025-01-12] MEDS ORDERED: ERYT2GEL TOP (15:24)
[2025-01-12] MEDS ORDERED: ACET1TAB55 PO (15:27)
[2025-01-12] MEDS ORDERED: RELP20TA PO (15:29)
[2025-01-12] MEDS ORDERED: EPIPENSY SC (15:31)
[2025-01-12] MEDS ORDERED: IBUP-1720 PO (15:33)
[2025-01-12] MEDS ORDERED: SFHIBU600 PO (15:34)
[2025-01-12] MEDS ORDERED: D31000CA4 PO (15:37)
[2025-01-12] MEDS ORDERED: FLUO40CA PO (15:38)
[2025-01-12] MEDS ORDERED: NEOM14OI TOP (15:40)
[2025-01-12] MEDS ORDERED: DESI13CR2 TOP (15:40)
[2025-01-12] MEDS ORDERED: HOME MED LIST COMPLETE! XX SCH (15:45)
[2025-01-12 16:28] VITALS: BP 136/83; TEMP 98.4; O2SAT 100
[2025-01-12] MEDS: PROPRANOLOL 10 MG TAB PO SCH (16:44)
[2025-01-12] MEDS: traZODone 50 MG TAB PO PRN (20:19)
[2025-01-12] MEDS ORDERED: TOPIRAMATE 100 MG TAB PO SCH (21:00)
[2025-01-13 06:38] VITALS: BP 106/56; TEMP 97.3; O2SAT 98
[2025-01-13] MEDS: FLUoxetine 20 MG CAP PO SCH (08:06)
[2025-01-13] MEDS: MONTELUKAST 10 MG TAB PO SCH (08:06)
[2025-01-13 14:54] VITALS: BP 130/76; TEMP 97.1; O2SAT 100
[2025-01-13] MEDS: acetaZOLAMIDE 250 MG TAB PO SCH (21:00)
[2025-01-14 06:31] VITALS: BP 101/54; TEMP 96.8; O2SAT 99
[2025-01-14 10:35] LABS: KETONE, URINE AUTO RFX NEGATIVE (NEGATIVE); MUCUS, URINE RFX SMALL (NEGATIVE); NITRITE, URINE AUTO RFX NEGATIVE (NEGATIVE); RBC, URINE AUTO RFX 2 /HPF (0-3); SQUAM EPITHELIAL CELL UR AURFX 7 /HPF (0-6); WBC, URINE AUTO RFX 8 /HPF (0-3)
[2025-01-14 10:36] LABS: LEUKOCYTE ESTERASE UR AUTO RFX 3+ (NEGATIVE)
[2025-01-14] MEDS: NITROFURANTOIN 100 MG CAP PO SCH (13:10)
[2025-01-14 14:58] VITALS: BP 119/65; TEMP 97.2; O2SAT 97
[2025-01-15 06:24] VITALS: BP 111/58; TEMP 96.5; O2SAT 99
[2025-01-15 08:20] VITALS: BP 117/77
[2025-01-15 15:13] VITALS: BP 130/82; TEMP 97.2; O2SAT 99
[2025-01-16 06:16] VITALS: BP 113/59; TEMP 96.8; O2SAT 99
[2025-01-16 08:12] VITALS: BP 117/77
[2025-01-16 08:14] VITALS: BP 117/77
[2025-01-16] MEDS: IBUPROFEN 400 MG TAB PO PRN (08:49)
[2025-01-16] MEDS ORDERED: TRAZ-252 PO (08:59)
[2025-01-16] MEDS ORDERED: PROP10TA56 PO (08:59)
[2025-01-16] MEDS ORDERED: ABIL10TA9 PO (08:59)
[2025-01-16] MEDS ORDERED: FLUO-365 PO (08:59)
== END 2025-01-16 12:03 | disposition home or self-care (01) | DRG 751 ==
LOC: M ED 19:13 → M ED INP 22:19 → M PSY 23:05
PROVIDERS: ADMIT Psychiatry & Neurology Neurology; ATTEND General Practice
DX: F33.3 Major depressive disorder, recurrent, severe with psychotic symptoms (principal); F79 Unspecified intellectual disabilities; R45.851 Suicidal ideations; F41.9 Anxiety disorder, unspecified; F60.3 Borderline personality disorder; F43.10 Post-traumatic stress disorder, unspecified; Z79.84 Long term (current) use of oral hypoglycemic drugs; Z79.899 Other long term (current) drug therapy; Z91.010 Allergy to peanuts; Z91.048 Other nonmedicinal substance allergy status; E28.2 Polycystic ovarian syndrome; J45.20 Mild intermittent asthma, uncomplicated; L70.0 Acne vulgaris; E66.9 Obesity, unspecified; Z68.39 Body mass index [BMI] 39.0-39.9, adult; Z81.1 Family history of alcohol abuse and dependence; Z81.3 Family history of other psychoactive substance abuse and dependence

== ENCOUNTER → 2025-01-30 | Outpatient (REF) | payer MEDICAID ==
[~2025-01-30] MED LIST changes: +ABIL10TA9 PO; +ACET1TAB55 PO; +ACET250T18 PO; +D31000CA4 PO; +DESI13CR2 TOP; +EPIPENSY SC; +ERYT2GEL TOP; +FLUO-365 PO; +FLUO40CA PO; +IBUP-1720 PO; +METF-838 PO; +NEOM14OI TOP; +NORA0.35 PO; +PROP10TA56 PO; +RELP20TA PO; +SFHIBU600 PO
[2025-01-30 21:39] LABS: APPEARANCE, URINE CLEAR (CLEAR); BACTERIA, URINE AUTO NEGATIVE (NEGATIVE); BILIRUBIN, URINE AUTO NEGATIVE (NEGATIVE); BLOOD, URINE BLOOD NEGATIVE (NEGATIVE); GLUCOSE, URINE (UA) AUTO NEGATIVE (NEGATIVE); KETONE, URINE AUTO NEGATIVE (NEGATIVE); LEUKOCYTE ESTERASE, URINE AUTO 2+ (NEGATIVE); NITRITE, URINE AUTO NEGATIVE (NEGATIVE); PROTEIN, URINE AUTO NEGATIVE (NEGATIVE); RBC, URINE AUTO 1 /HPF (0-3); SPECIFIC GRAVITY URINE AUTO 1.005 (1.002-1.035); SQUAMOUS EPITHELIAL CELL UR AU 0 /HPF (0-6); UROBILINOGEN, URINE AUTO 0.2 mg/dL (0.0-2.0); WBC, URINE AUTO 1 /HPF (0-3)
== END ==
LOC: M LAB REF 21:28
PROVIDERS: ATTEND Physician Assistant Medical
DX: N39.0 Urinary tract infection, site not specified (principal)

== ENCOUNTER 2025-02-28 16:12 | Inpatient (IN) | payer MEDICAID ==
[~2025-02-28] VITALS: Ht 154.9 cm; Wt 111.4 kg
[2025-02-28 16:48] LABS: PLATELET COUNT, AUTOMATED 367 10^3/uL (150-450)
[2025-02-28 17:11] LABS: AMPHETAMINES LEVEL URINE NEGATIVE (NEGATIVE); BARBITURATES URINE NEGATIVE (NEGATIVE); BENZODIAZEPINES URINE NEGATIVE (NEGATIVE); CANNABINOIDS URINE NEGATIVE (NEGATIVE); COCAINE METABOLITE URINE NEGATIVE (NEGATIVE); METHADONE URINE NEGATIVE (NEGATIVE); OPIATES URINE NEGATIVE (NEGATIVE); PHENCYCLIDINE URINE NEGATIVE (NEGATIVE)
[2025-02-28 17:13] LABS: ETHYL ALCOHOL (ETHANOL) < 0.003 % (0.000-0.010)
[2025-02-28 17:15] LABS: ALT/SGPT 21 U/L (7.0-40); AST/SGOT 11 U/L (<34); CALCIUM LEVEL 9.2 MG/DL (8.5-10.1); CARBON DIOXIDE LEVEL 20 MMOL/L (20-31); CHLORIDE LEVEL 108 MMOL/L (98-107); CREATININE FOR GFR 0.91 MG/DL (0.55-1.30); GLOMERULAR FILTRATION RATE 86.5 (>60); POTASSIUM SERUM 3.8 MMOL/L (3.5-5.1); SALICYLATE LEVEL < 3.0 MG/DL (<30); SODIUM LEVEL 141 MMOL/L (136-145)
[2025-02-28 17:33] LABS: URINE PREG TEST NEGATIVE (NEGATIVE)
[2025-02-28] MEDS ORDERED: PROP10TA56 PO (19:40)
[2025-02-28] MEDS ORDERED: TRAZ-252 PO (19:40)
[2025-02-28] MEDS ORDERED: ACET-910 PO (19:40)
[2025-02-28] MEDS ORDERED: VENL75CA47 PO (19:40)
[2025-02-28] MEDS ORDERED: HOME MED LIST COMPLETE! XX SCH (19:40)
[2025-02-28] MEDS ORDERED: **SFRHE** EPINEPHrine (EPIPEN) 0.3MG/0.3ML SYRINGE INJ PRN (20:20)
[2025-02-28] MEDS ORDERED: ALBUTEROL 90 MCG/ACT 8 GM HFA INHALER INH PRN (20:20)
[2025-02-28] MEDS ORDERED: NEOSPORIN TOP OINT 15 GM TOP PRN (20:20)
[2025-02-28] MEDS ORDERED: MOM 30 ML SUSPENSION UDC PO PRN (20:20)
[2025-02-28] MEDS ORDERED: BALMEX CREAM 60 GM TOP PRN (20:20)
[2025-02-28] MEDS ORDERED: IBUPROFEN 200 MG TAB PO PRN (20:20)
[2025-02-28] MEDS ORDERED: MAALOX 30 ML SUSP *UDC PO PRN (20:20)
[2025-02-28] MEDS: PROPRANOLOL 10 MG TAB PO SCH (21:14)
[2025-02-28] MEDS: acetaZOLAMIDE 250 MG TAB PO SCH (21:14)
[2025-02-28] MEDS: ERYTHROMYCIN 2 % GEL 30 GM TOP SCH (21:15)
[2025-02-28] MEDS: MONTELUKAST 10 MG TAB PO SCH (21:15)
[2025-02-28] MEDS: IBUPROFEN 600 MG TAB PO PRN (21:18)
[2025-02-28 21:28] VITALS: BP 125/83; TEMP 97.3; O2SAT 100
[2025-03-01 06:22] VITALS: BP 131/74; TEMP 97.9; O2SAT 98
[2025-03-01] MEDS ORDERED: VENLAFAXINE **XR** 75MG CAPSULE PO SCH ×2 (09:00)
[2025-03-01] MEDS: VENLAFAXINE **XR** 37.5 MG CAPSULE PO SCH (09:01)
[2025-03-01] MEDS: VENLAFAXINE **XR** 75MG CAPSULE PO SCH (09:01)
[2025-03-01 14:54] VITALS: BP 143/83; TEMP 97.6; O2SAT 99
[2025-03-01] MEDS: traZODone 50 MG TAB PO PRN (20:08)
[2025-03-01 21:17] VITALS: BP 139/75; TEMP 97.6; O2SAT 99
[2025-03-02 06:27] VITALS: BP 134/69; TEMP 97.6; O2SAT 99
[2025-03-02 15:37] VITALS: BP 108/70; TEMP 97.4; O2SAT 99
[2025-03-03 06:28] VITALS: BP 134/63; TEMP 96.6; O2SAT 98
[2025-03-03 15:16] VITALS: BP 129/80; TEMP 97.4; O2SAT 97
[2025-03-04 06:16] VITALS: BP 128/74; TEMP 96.7; O2SAT 99
[2025-03-04 14:50] VITALS: BP 133/84; TEMP 97.9; O2SAT 98
[2025-03-05 06:45] VITALS: BP 132/80; TEMP 98.3; O2SAT 100
[2025-03-05 15:41] VITALS: BP 115/76; TEMP 97.8; O2SAT 100
[2025-03-06 06:34] VITALS: BP 135/70; TEMP 97.4; O2SAT 99
[2025-03-06] MEDS ORDERED: BENA25CA4 PO (08:07)
[2025-03-06] MEDS ORDERED: VENL75CA47 PO (08:07)
[2025-03-06] MEDS ORDERED: VENL37.598 PO (08:07)
[2025-03-06 08:21] VITALS: BP 135/99
== END 2025-03-06 10:11 | disposition home or self-care (01) | DRG 751 ==
LOC: M ED 16:12 → M ED INP 20:20 → M PSY 20:54
PROVIDERS: ADMIT Psychiatry & Neurology Neurology; ATTEND Psychiatry & Neurology Psychiatry
DX: F33.3 Major depressive disorder, recurrent, severe with psychotic symptoms (principal); F79 Unspecified intellectual disabilities; E28.2 Polycystic ovarian syndrome; F41.0 Panic disorder [episodic paroxysmal anxiety]; J45.20 Mild intermittent asthma, uncomplicated; F43.10 Post-traumatic stress disorder, unspecified; F60.3 Borderline personality disorder; Z91.51 Personal history of suicidal behavior; Z62.810 Personal history of physical and sexual abuse in childhood; Z79.84 Long term (current) use of oral hypoglycemic drugs; Z79.899 Other long term (current) drug therapy; Z91.010 Allergy to peanuts; Z91.048 Other nonmedicinal substance allergy status; Z91.52 Personal history of nonsuicidal self-harm

== ENCOUNTER → 2025-03-07 | Outpatient (REF) | payer MEDICAID ==
[~2025-03-07] MED LIST changes: +ACET-910 PO; +BENA25CA4 PO; +VENL37.598 PO; +VENL75CA47 PO
== END ==
LOC: M SFHCWAGY 16:56
PROVIDERS: ATTEND Nurse Practitioner Family
DX: R35.0 Frequency of micturition (principal); N73.9 Female pelvic inflammatory disease, unspecified

== ENCOUNTER → 2025-03-29 | Outpatient (CLI) | payer MEDICAID | LOC: M SOG 07:37 | PROVIDERS: ATTEND Orthopaedic Surgery | DX: M25.562 Pain in left knee (principal) ==